=== PATIENT | female | born 1985 | race Caucasian/White ===

== ENCOUNTER 2017-01-09 11:37 | Emergency (ER) | payer MEDICAID ==
[~2017-01-09] VITALS: Ht 157.5 cm; Wt 57.0 kg
[~2017-01-09 11:37] MED LIST: ACET325T33 PO; DICY10CA60 PO; DOCU-144 PO; IBUP-1542 PO; NITR-58 PO; PRENAT PO
[2017-01-09 11:51] VITALS: Ht 157.5 cm; Wt 57.0 kg
[2017-01-09] MEDS ORDERED: SOD CHLORIDE 0.9% 1,000 ML IV STA (14:46)
[2017-01-09] MEDS ORDERED: METOCLOPRAMIDE 10 MG INJ IV STA (14:46)
[2017-01-09] MEDS ORDERED: DIPHENHYDRAMINE 50 MG INJ IV ONE (15:00)
[2017-01-09 15:02] LABS: URINE BLOOD (Dip) POC Trace-lysed (NEGATIVE)
[2017-01-09 15:26] LABS: ADD UMIC YES; URINE BILIRUBIN (Dip) NEGATIVE (NEGATIVE); URINE BLOOD (Dip) TRACE (NEGATIVE); URINE COLOR LT. YELLOW (YELLOW); URINE GLUCOSE (Dip) NEGATIVE (NEGATIVE); URINE KETONES (Dip) 15 (NEGATIVE); URINE LEUKOCYTE ESTERASE (Dip) TRACE (NEGATIVE); URINE NITRITE (Dip) NEGATIVE (NEGATIVE); URINE TOTAL PROTEIN (Dip) NEGATIVE (NEGATIVE); URINE UROBILINOGEN (Dip) 0.2 E.U./dL (0.1-1.0)
[2017-01-09 15:45] LABS: SQUAMOUS EPITHELIAL CELL,UR MODERATE; URINE RBCS 0-2 /HPF (0)
[2017-01-09 15:46] LABS: BACTERIA,URINE OCCASIONAL
[2017-01-09 15:49] LABS: ADD SCAN DIFF NO
[2017-01-09 15:51] LABS: BASOPHILS % 0.3 % (0.0-2.0); EOSINOPHILS % 0.1 % (0.0-7.0); HEMATOCRIT 44.1 % (37.0-47.0); HEMOGLOBIN 14.6 g/dl (12.0-16.0); LYMPHOCYTES # 2.3 10^3/ul (0.8-2.9); LYMPHOCYTES % 23.8 % (15.0-51.0); MEAN CORPUSCULAR HEMOGLOBIN 29.5 pg (29.0-33.0); MEAN CORPUSCULAR HGB CONC 33.1 g/dl (32.0-37.0); MEAN CORPUSCULAR VOLUME 89.1 fl (82.0-101.0); MEAN PLATELET VOLUME 10.3 fl (7.4-10.4); MONOCYTE # 0.4 10^3/ul (0.3-0.9); MONOCYTES % 4.4 % (0.0-11.0); NEUTROPHIL # 6.9 10^3/ul (1.6-7.5); NEUTROPHILS % 71.1 % (39.0-77.0); PLATELET COUNT 313 10^3/UL (140-415); RED BLOOD COUNT 4.95 10^6/ul (4.20-5.40); RED CELL DISTRIBUTION WIDTH 12.3 % (11.5-14.5); WHITE BLOOD COUNT 9.7 10^3/ul (4.8-10.8)
[2017-01-09 16:24] LABS: POTASSIUM 3.7 mmol/L (3.5-5.1)
[2017-01-09 16:27] LABS: ALBUMIN/GLOBULIN RATIO 1.13; BILIRUBIN,INDIRECT 0.3 mg/dl (0-1.1); BILIRUBIN,TOTAL 0.3 mg/dl (0.2-1.3); CALCIUM 9.5 mg/dl (8.4-10.2); CREATININE 0.74 mg/dl (0.44-1.00); TOTAL PROTEIN 9.4 g/dl (6.1-8.1)
[2017-01-09] MEDS ORDERED: LORAZEPAM 2 MG INJ IV ONE (17:00)
[2017-01-09 17:35] VITALS: BP 121/78; PULSE 72; RESP 18
--- NOTE | 2017-01-09 18:18 | ERD ---
ER Documentation Chief Complaint Date/Time DATE: 01/09/17 TIME: 18:15 Chief Complaint PT with ORANTES, palpitation X 2 months. HPI 31-year-old female patient with no significant past medical history presents to the ED complaining of numbness and tingling sensation of the right side of her head, feeling like she is having chills at night. Reports that she also has palpitations. States that she has been stressed and feels nervous. States that her last menses was on January 02, 2017. States that she has seen her primary care physician on June 12, [place] admission city and they stated that she was under a lot of stress and aches therefore experiencing all of these symptoms. States that she is nauseous but denies any vomiting. Reports that she feels generalized weakness. Denies any chest pain, shortness of breath, dyspnea on exertion, abdominal pain, pleuritic chest pain. Denies any recent traveling. Denies any leg swelling. Denies any dysuria, urgency, frequency, hematuria. ROS All systems reviewed and are negative except as per history of present illness. Medications Home Meds Active Scripts Acetaminophen* (Tylenol*) 325 Mg Tablet, 2 TAB PO Q6 Y for PAIN AND OR ELEVATED TEMP, #20 TAB Prov:RICOCELE RONDON I. PELLET PRESS OPERATOR 01/19/16 Nitrofurantoin Monohyd Macrocr* (Macrobid*) 100 Mg Capsr, 100 MG PO BID for 5 Days, CAP Prov:RICOCELE XIAO I. PELLET PRESS OPERATOR 01/19/16 Dicyclomine Hcl* (Bentyl*) 10 Mg Capsule, 10 MG PO QID, #20 CAP Prov:MAINE HOLLAND 11/03/15 Docusate Sodium* (Colace*) 100 Mg Capsule, 100 MG PO TID, #30 CAP Prov:MAINE HOLLAND S. 11/03/15 Reported Medications Ibuprofen* (Ibuprofen*) 600 Mg Tablet, 600 MG PO Q6 Y for PAIN 11/03/15 Multivit/Min/Fol Ac/Iron/Pren* ( S*) 1 Tab Tab, 1 TAB PO DAILY, TAB 08/17/14 Allergies Allergies: Coded Allergies: No Known Allergy (Unverified , 08/17/14) PMhx/Soc History of Surgery: No Anesthesia Reaction: No Hx Neurological Disorder: No Hx Respiratory Disorders: No Hx Cardiac Disorders: No Hx Psychiatric Problems: No Hx Miscellaneous Medical Probl: Yes (high cholesterol) Hx Alcohol Use: No Hx Substance Use: No Hx Tobacco Use: No Smoking Status: Never smoker Physical Exam Vitals Vital Signs Date Time Temp Pulse Resp B/P Pulse Ox O2 Delivery O2 Flow Rate FiO2 01/09/17 17:35 72 18 121/78 99 Room Air 01/09/17 11:51 97.7 63 18 131/76 100 Physical Exam Const: [id number], well-nourished. In no acute distress. Head: Atraumatic, normocephalic Eyes: Normal Conjunctiva without injection. No purulent discharge. PERRLA. EOMI ENT: Normal external ear. Ear canal without erythema. Tympanic membrane pearly sue without effusion or bulging. Nasal canal clear with normal turbinates. Moist oropharynx without tonsillar exudates. Non-erythematous pharynx. Uvula midline. No drooling. No trismus. Neck: No cervical midline tenderness. Full range of motion. No meningismus. No cervical lymphadenopathy. No JVD. Resp: Clear to auscultation bilaterally. No wheezing, rhonchi, rales, or crackles. No accessory muscle use. No retractions. Cardio: Regular rate and rhythm. No murmurs, rubs or gallops. Abd: Soft, non tender, non distended. Normal bowel sounds. No palpable masses. No rebound tenderness. No guarding. Negative McBurney's Point. Negative Hui's Sign. Skin: Normal skin turgor. No petechiae or rashes Back: No midline tenderness. No CVA tenderness. Ext: No cyanosis, or edema. Distal pulses intact bilaterally. Neur: Awake and alert. Normal gait. Normal coordination. Cranial Nerves II- VII intact. Normal finger to nose. Muscle strength 5/5. Sensation intact. Psych: Normal Mood and Affect Results 24 hrs Laboratory Tests Test 01/09/17 15:04 01/09/17 15:15 Bedside Urine pH (LAB) 5.5 Bedside Urine Protein (LAB) Negative Bedside Urine Glucose (UA) Negative Bedside Urine Ketones (LAB) 1+ Bedside Urine Blood Trace-lysed Bedside Urine Nitrite (LAB) Negative Bedside Urine Leukocyte Esterase (L Trace White Blood Count 9.710^3/ul Red Blood Count 4.9510^6/ul Hemoglobin 14.6g/dl Hematocrit 44.1% Mean Corpuscular Volume 89.1fl Mean Corpuscular Hemoglobin 29.5pg Mean Corpuscular Hemoglobin Concent 33.1g/dl Red Cell Distribution Width 12.3% Platelet Count 73547^3/UL Mean Platelet Volume 10.3fl Neutrophils % 71.1% Lymphocytes % 23.8% Monocytes % 4.4% Eosinophils % 0.1% Basophils % 0.3% Nucleated Red Blood Cells % 0.0/100WBC Neutrophils # 6.910^3/ul Lymphocytes # 2.310^3/ul Monocytes # 0.410^3/ul Eosinophils # 0.010^3/ul Basophils # 0.010^3/ul Nucleated Red Blood Cells # 0.010^3/ul Urine Color LT. YELLOW Urine Clarity CLEAR Urine pH 6.0 Urine Specific [place] <=1.005 Urine Ketones 15 Urine Nitrite NEGATIVE Urine Bilirubin NEGATIVE Urine Urobilinogen 0.2 E.U./dL Urine Leukocyte Esterase TRACE Urine Microscopic RBC 0-2/HPF Urine Microscopic WBC 2-5/HPF Urine Squamous Epithelial Cells MODERATE Urine Bacteria OCCASIONAL Urine Hemoglobin TRACE Urine Glucose NEGATIVE% Urine Total Protein NEGATIVE Sodium Level 142mmol/L Potassium Level 3.7mmol/L Chloride Level 102mmol/L Carbon Dioxide Level 25mmol/L Anion Gap 19 Blood Urea Nitrogen 11mg/dl Creatinine 0.74mg/dl Glucose Level 109mg/dl Calcium Level 9.5mg/dl Total Bilirubin 0.3mg/dl Direct Bilirubin 0.00mg/dl Indirect Bilirubin 0.3mg/dl Aspartate Amino Transf (AST/SGOT) 25IU/L Alanine Aminotransferase (ALT/SGPT) 30IU/L Alkaline Phosphatase 91IU/L Total Protein 9.4g/dl Albumin 5.0g/dl Globulin 4.40g/dl Albumin/Globulin Ratio 1.13 Lipase 84U/L Current Medications Medications (Trade) Dose Ordered Sig/Brandon Route PRN Reason Start Time Stop Time Status Last Admin Dose Admin Sodium Chloride (NS) 1,000 ml @ 1,000 mls/hr Q1H STAT IV 01/09/17 14:46 01/09/17 15:45 DC 01/09/17 15:20 Metoclopramide HCl (Reglan) 10 mg ONCE STAT IV 01/09/17 14:46 01/09/17 14:50 DC Diphenhydramine HCl (Benadryl) 25 mg ONCE ONCE IV 01/09/17 15:00 01/09/17 15:01 DC Lorazepam (Ativan) 1 mg ONCE ONCE IV 01/09/17 17:00 01/09/17 17:01 DC Procedures/MDM This is a 31-year-old female patient with no significant past medical history presents to the ED complaining of numbness and tingling of the right side of her head, palpitations, fatigue started a few months ago. Patient is afebrile and nontoxic-appearing. Patient is neurologically intact. Patient was further worked up with CBC, CMP, lipase, UA, urine . Patient's pain and symptoms have improved after treatment with 1 L normal saline. Patient denied wanting Ativan, Benadryl and Reglan. CBC: No leukocytosis. No e/o of systemic infection. No e/o anemia. CMP: No e/o severe acidosis, alkalosis, renal failure, diabetic ketoacidosis, liver disease Lipase within normal limits. Urine: trace leukocyte esterase, no nitrites, no hematuria. Urine : negative EKG reviewed and interpreted by Dr. Drummond Rate/Rhythm: [63 bpm, Normal Sinus Rhythm] No ectopy, no ST elevations, normal axis. QRS, ST, T-waves: [No changes consistent w/ acute ischemia] Impression: [No evidence of ischemia or arrhythmia] Differentials include anxiety. Low suspicion for acute myocardial infarction, pneumothorax, carotid dissection, carotid aneurysm, pneumonia, cardiac tamponade , pulmonary embolism, AAA, aortic dissection, Boerhaave's syndrome, cardiac dysrhythmias,meningitis, intracranial bleed, subarachnoid hemorrhage, epidural hematoma, subdural hematoma, seizure, stroke, TIA or other emergent conditions. Follow up with primary care physician in 1-2 days for referral to neurologist. Instructed patient to return to the ED sooner for any worsening symptoms. Patient's questions were answered. Patient understood and agreed with discharge plan. Patient discharged stable. Departure Diagnosis: Primary Impression: Numbness and tingling Additional Impression: Palpitations Condition: Stable Patient Instructions: Numbness, Anxiety Reaction, Palpitations Referrals: [facility] Usted se orantes hecho un examen mdico de control que le indica que no est en rene condicin que requiera tratamiento urgente en el Departamento de Emergencia. Un estudio ms profundo y el tratamiento de wild condicin pueden esperar sin ningn riesgo hasta que usted sea atendida/o en el consultorio de wild mdico o rene cl danielle. Es responsabilidad suya arreglar rene gene para el seguimiento del alley. MANEJO DE CONDICIONES NO URGENTES EN EL FUTURO 1) Si usted tiene un mdico de atencin primaria: Usted debera llamar a wild mdico de atencin primaria antes de venir al departamento de emergencia. Despus de las horas de consultorio, wild doctor o wild asociado/a est disponible por telfono. El mdico o enfermero de lorraine en el servicio telefnico puede asesorarle por juan carlos medio para atender el problema, o alley contrario se puede programar rene gene. 2) Si usted no tiene un mdico de atencin primaria: Llame al mdico o clnica de referencia que aparece abajo gisel las horas de consultorio para hacer rene gene para que le vean. CLINICAS: [facility] [phone] [address] [facility] [facility] [phone] [address] [facility] [phone] [address] [facility] [place] [id number] [phone] [facility] [place] [id number] [phone] [facility]. [phone] [facility] () Usted se orantes hecho un examen mdico de control que le indica que no est en rene condicin que requiera tratamiento urgente en el Departamento de Emergencia. Un estudio ms profundo y el tratamiento de wild condicin pueden esperar sin ningn riesgo hasta que usted sea atendida/o en el consultorio de wild mdico o rene cl danielle. Es responsabilidad suya arreglar rene gene para el seguimiento del alley. MANEJO DE CONDICIONES NO URGENTES EN EL FUTURO 1) Si usted tiene un mdico de atencin primaria: Usted debera llamar a wild mdico de atencin primaria antes de venir al departamento de emergencia. Despus de las horas de consultorio, wild doctor o wild asociado/a est disponible por telfono. El mdico o enfermero de lorraine en el servicio telefnico puede asesorarle por juan carlos medio para atender el problema, o alley contrario se puede programar rene gene. 2) Si usted no tiene un mdico de atencin primaria: Llame al mdico o condado institucions de referencia que aparece abajo gisel las horas de consultorio para hacer rene gene para que le vean. SI USTED NO PUEDE PAGAR PARA GENE UN MEDICO puede ir a: [facility] [address] [place] [address] [facility] [address] [place] [address] [facility] [address] [place] [address] [facility] [address] [place], [place] [id number] Additional Instructions: Visite a wild mdico maana para un EXAMEN para rene referencia a un neurlogo. Regrese a estas instalaciones si no se mejora constanza esperbamos o constanza le dijimos. DARYL APODACA PA-C January 09, 2017 18:18 DARYL APODACA PA-C January 09, 2017 18:18
== END 2017-01-09 17:37 | disposition home or self-care (01) ==
LOC: FTE 11:37
DX: R20.2 Paresthesia of skin (principal); R00.2 Palpitations; R20.0 Anesthesia of skin
CPT/HCPCS: 80053; 81001; 81003; 83690; 85025; 93005; J1200; J2765; J7030; Z7502